=== PATIENT | female | born 1995 | race Caucasian/White ===

== ENCOUNTER 2017-05-06 16:16 | Outpatient (CLI) | payer OTHER ==
--- NOTE | 2017-05-06 17:37 | Non Stress Test Report ---
Non Stress Test Datetime Report Generated by CPN: 05/06/2017 17:36 DEMOGRAPHIC EGA NST: 34.6 INDICATION Indication for Study: Polyhydramnios VITAL SIGNS Temperature - NST: 98.9 NBPSYS NST: 120 NBPDIA NST: 73 MONITORING Monitor Explained: Monitor Explained; Test Explained; Patient Verbalized Understanding Time on Monitor: 05/06/2017 16:28 Time off Monitor: 05/06/2017 17:23 NST Duration: 55 NST INTERVENTIONS NST Interventions: PO Hydration; Reposition Patient Physician Notified NST: Dr. Alex BABY A: [id number] BABY A Movement : Present Contraction Frequency : irritability FHR Baseline : 130 Accelerations : 15X15 Decelerations : None Variability : Moderate 6-25bpm NST Review: Meets Criteria for Reactive NST NST Review and Verified By : Yin Pinto RN NST Results: Reactive NST REPORT Report Trigger: Send Report
== END 2017-05-06 17:40 | disposition home or self-care (01) ==
LOC: LC 16:16
PROVIDERS: ATTEND Obstetrics & Gynecology
PROC: 4A1HXCZ Monitoring of Products of Conception, Cardiac Rate, External Approach (ICD-10-PCS; principal; 2017-05-06)
DX: O40.2XX0 Polyhydramnios, second trimester, not applicable or unspecified (principal); Z3A.34 34 weeks gestation of pregnancy
CPT/HCPCS: 59025

== ENCOUNTER 2017-06-15 08:40 | Inpatient (IN) | payer OTHER ==
[2017-06-15 09:16] LABS: APPEARANCE,URINE SLIGHTLY-CLOUDY; BILIRUBIN,URINE NEGATIVE (NEGATIVE); GLUCOSE, URINE NEGATIVE (NEGATIVE); KETONES,URINE TRACE mg/dL (NEGATIVE); LEUKOCYTE ESTERASE,URINE SMALL (NEGATIVE); NITRITE,URINE NEGATIVE (NEGATIVE); PROTEIN,URINE NEGATIVE (NEGATIVE); URINE SPECIFIC GRAVITY 1.016; UROBILINOGEN,URINE NEGATIVE mg/dL (<2.0)
[2017-06-15] MEDS ORDERED: HYDROXYZINE PAMOATE 50 MG CAPSULE ONE (09:28)
[2017-06-15 09:33] LABS: URINE BARBITURATES SCREEN NEGATIVE; URINE METHADONE SCREEN NEGATIVE; URINE OPIATES LOW NEGATIVE; URINE PHENCYCLIDINE SCREEN NEGATIVE
[2017-06-15] MEDS ORDERED: ACETAMINOPHEN 325 MG TABLET ONE ×2 (09:57→18:41)
[2017-06-15] MEDS ORDERED: PENICILLIN G-K 5 MILLION UNIT VIAL ONE ×3 (10:15→18:14)
[2017-06-15 10:51] LABS: ABSOLUTE LYMPHOCYTES (AUTO) 1.5 10^3/uL (0.5-4.7); ABSOLUTE MONOCYTES (AUTO) 1.1 10^3/uL (0.1-1.4); ABSOLUTE NEUT (AUTO) 16.7 10^3/uL (1.7-8.2); BASOPHILS % (AUTO) 0.2 % (0-2); EOSINOPHILS % (AUTO) 0.1 % (0-6); HEMATOCRIT 29.7 % (36.0-47.0); HEMOGLOBIN 9.6 g/dL (12.0-15.5); HGB HCT DIFFERENCE -0.9; LYMPHOCYTES % (AUTO) 7.6 % (13-45); MEAN CORPUSCULAR HEMOGLOBIN 24.8 pg (27.0-33.4); MEAN CORPUSCULAR HGB CONC 32.5 g/dL (32.0-36.0); MEAN CORPUSCULAR VOLUME 77 fl (80-97); MONOCYTES % (AUTO) 5.7 % (3-13); RED BLOOD COUNT 3.88 10^6/uL (3.72-5.28); RED CELL DISTRIBUTION WIDTH 17.2 % (11.5-14.0); SEGMENTED NEUTROPHILS % (AUTO) 86.4 % (42-78); WHITE BLOOD COUNT 19.3 10^3/uL (4.0-10.5)
[2017-06-15] MEDS ORDERED: PENICILLIN G POTASSIUM 5,000,000 UNIT in DEXTROSE 5%-WATER 100 ML IV ONE (11:06)
[2017-06-15] MEDS ORDERED: RINGERS SOLUTION,LACTATED 1,000 ML IV ONE (11:06)
[2017-06-15] MEDS ORDERED: RINGERS SOLUTION,LACTATED 1,000 ML IV PRN (11:06)
[2017-06-15] MEDS ORDERED: OXYTOCIN/NORMAL SALINE 20 UNIT/1,000 ML RTUINJ IV PRN ×2 (11:06→21:11)
[2017-06-15] MEDS ORDERED: LIDOCAINE 1% INJ-PF (10 MG/ML) 30 ML SDV ONE (11:27)
[2017-06-15] MEDS ORDERED: MISOPROSTOL 0.2 MG TABLET ONE (11:27)
[2017-06-15] MEDS ORDERED: OXYTOCIN/NORMAL SALINE 20 UNIT/1,000 ML RTUINJ ONE ×2 (11:27→21:38)
[2017-06-15] MEDS: PENICILLIN G POTASSIUM 2,500,000 UNIT in DEXTROSE 5%-WATER 50 ML IV SCH ×2 (14:14→18:26)
[2017-06-15] MEDS ORDERED: EPHEDRINE SULFATE INJ 50 MG/1 ML AMPULE ONE (15:36)
[2017-06-15] MEDS ORDERED: FENTANYL CITRATE INJ/PF 100 MCG/2 ML AMPUL ONE (15:36)
[2017-06-15] MEDS ORDERED: PHENYLEPHRINE HCL INJ/PF 10 MG/1 ML SDV ONE (15:37)
[2017-06-15] MEDS ORDERED: FENTANYL/BUPIVACAINE/NS/PF 200 MCG/100 ML RTUINJ EPI ONE (15:37)
[2017-06-15] MEDS ORDERED: BUPIVACAINE HCL 0.25 % INJ/PF (2.5 MG/1 ML) 30 ML VIAL ONE (15:37)
[2017-06-15] MEDS ORDERED: PROMETHAZINE HCL INJ 25 MG/1 ML VIAL IV PRN (21:11)
[2017-06-15] MEDS ORDERED: NA PHOS,M-B/NA PHOS,DI-BA (ADULT) 133 ML ENEMA PR PRN (21:11)
[2017-06-15] MEDS ORDERED: MEASLES,MUMPS&RUBELLA VACC/PF 0.5 ML VIAL SUBCUT PRN (21:11)
[2017-06-15] MEDS ORDERED: PROMETHAZINE HCL 25 MG TABLET PO PRN (21:11)
[2017-06-15] MEDS ORDERED: BENZOCAINE/MENTHOL AEROSOL SPRAY 56 ML TOP PRN (21:11)
[2017-06-15] MEDS ORDERED: MAGNESIUM HYDROXIDE SUSP 30 ML UDCUP PO PRN (21:11)
[2017-06-15] MEDS ORDERED: PROMETHAZINE HCL 25 MG SUPP.RECT PR PRN (21:11)
[2017-06-15] MEDS ORDERED: DIPH/PERTUSS(ACELL)/TETANUS VAC/PF 0.5 ML SYR (>=10YO) IM PRN (21:11)
[2017-06-15] MEDS ORDERED: DIBUCAINE 1% OINTMENT 28 GM TP PRN (21:11)
[2017-06-15] MEDS ORDERED: PSEUDOEPHEDRINE HCL 30 MG TABLET PO PRN (21:11)
[2017-06-15] MEDS ORDERED: ZOLPIDEM TARTRATE 5 MG TABLET PO PRN (21:11)
[2017-06-15] MEDS ORDERED: DIPHENHYDRAMINE HCL 25 MG CAPSULE PO PRN (21:11)
[2017-06-15] MEDS ORDERED: ACETAMINOPHEN WITH CODEINE #3 TABLET PO PRN ×2 (21:11)
[2017-06-15] MEDS ORDERED: ACETAMINOPHEN 650 MG SUPP.RECT PR PRN (21:11)
[2017-06-15] MEDS ORDERED: GLYCERIN/WITCH HAZEL LEAF 1 EACH MED..PAD TP PRN (21:11)
[2017-06-15] MEDS ORDERED: AMPICILLIN SOD/SULBACTAM 3 GM VIAL IV SCH (21:15)
[2017-06-15] MEDS ORDERED: AMPICILLIN SODIUM/SULBACTAM NA 3 GM in NORMAL SALINE 100 ML IV ONE (22:00)
[2017-06-15] MEDS ORDERED: FERROUS SULFATE 325 MG TABLET PO ONE ×2 (23:00→23:41)
[2017-06-15 23:24] LABS: ABSOLUTE LYMPHOCYTES (AUTO) 1.1 10^3/uL (0.5-4.7); ABSOLUTE MONOCYTES (AUTO) 1.1 10^3/uL (0.1-1.4); ABSOLUTE NEUT (AUTO) 17.6 10^3/uL (1.7-8.2); BASOPHILS % (AUTO) 0.2 % (0-2); HEMATOCRIT 22.9 % (36.0-47.0); HGB HCT DIFFERENCE -0.4; LYMPHOCYTES % (AUTO) 5.4 % (13-45); MEAN CORPUSCULAR HEMOGLOBIN 25.2 pg (27.0-33.4); MEAN CORPUSCULAR HGB CONC 32.9 g/dL (32.0-36.0); MEAN CORPUSCULAR VOLUME 77 fl (80-97); MONOCYTES % (AUTO) 5.3 % (3-13); RED BLOOD COUNT 2.99 10^6/uL (3.72-5.28); RED CELL DISTRIBUTION WIDTH 17.7 % (11.5-14.0); SEGMENTED NEUTROPHILS % (AUTO) 89.1 % (42-78); WHITE BLOOD COUNT 19.8 10^3/uL (4.0-10.5)
[2017-06-15 23:29] LABS: HEMOGLOBIN 7.5 g/dL (12.0-15.5)
[2017-06-15] MEDS ORDERED: ACETAMINOPHEN WITH CODEINE #3 TABLET ONE (23:40)
[2017-06-16] MEDS ORDERED: ACETAMINOPHEN 325 MG TABLET ONE ×2 (00:20→04:57)
[2017-06-16] MEDS ORDERED: ACETAMINOPHEN 325 MG TABLET PO ONE (00:31)
[2017-06-16] MEDS ORDERED: NORMAL SALINE 250 ML IV PRN (01:08)
[2017-06-16] MEDS ORDERED: DIPHENHYDRAMINE HCL 25 MG CAPSULE ONE (02:04)
[2017-06-16] MEDS ORDERED: IBUPROFEN 800 MG TABLET ONE (02:14)
[2017-06-16] MEDS: IBUPROFEN 800 MG TABLET PO SCH ×4 (02:16→21:23)
--- NOTE | 2017-06-16 02:54 | Delivery Summary ---
Del Sum A-C Datetime Report Generated by CPN: 06/16/2017 02:53 DELIVERY PERSONNEL DELIVERY PERSONNEL: [id number] Delivery Doctor:: Corrina Johnson MD Labor and Delivery Nurse:: Iman Senior RNcollege scouting coordinator Nurse:: Elvira Prado RN Nursery Nurse:: Erica Doll RN MATERNAL INFORMATION Delivery Anesthesia: Epidural Medications After Delivery: Pitocin Bolus-Please Comment; Pitocin Drip 20 Units/1000ml NSS Estimated Blood Loss (ml): 200 Maternal Complications: Maternal Fever Provider Comments: copious amount of meconium. Nursery present at delivery LABOR SUMMARY EDC: 06/11/2017 00:00 No. Babies in Womb: 1 Attempted: No Labor Anesthesia: Epidural LABOR INFORMATION Reason for Induction: Postterm; Maternal Diabetes; Other Onset of Labor: 06/15/2017 15:03 Complete Dilatation: 06/15/2017 20:26 Oxytocin: Induction Group B Beta Strep: positive Antibiotics # of Doses: 3 Antibiotics Time of Last Dose: 1814 Steroids Given: None Reason Steroids Not Administered: Not Applicable MEMBRANES Membranes Rupture Method: Artificial Rupture of Membranes: 06/15/2017 15:03 Length of Rupture (hr): 5.93 Amniotic Fluid Color: Moderate Meconium Amniotic Fluid Amount: Large Amniotic Fluid Odor: Normal STAGES OF LABOR Stage 1 hr: 5 Stage 1 min: 23 Stage 2 hr: 0 Stage 2 min: 33 Stage 3 hr: 0 Stage 3 min: 5 Total Time in Labor hr: 6 Total Time in Labor min: 1 VAGINAL DELIVERY Episiotomy: None Laceration #1: None Laceration Repair: Not Applicable BABY A INFORMATION Delivery Date/Time: 06/15/2017 20:59 Method of Delivery: Vaginal Born in Route : No : N/A Forceps: N/A Vacuum Extraction: N/A Shoulder Dystocia : No PRESENTATION/POSITION BABY A Presentation: Cephalic Cephalic Presentation: N/A Vertex Position: Right Occipital Anterior Breech Presentation: N/A PLACENTA INFORMATION BABY A Placenta Delivery Time : 06/15/2017 21:04 Placenta Method of Delivery: Spontaneous Placenta Status: Delivered SCORES BABY A Heart Rate 1 min: >100 bpm Resp Effort 1 min: Good Cry Reflex Irritability 1 min: Cough or Sneeze or Pulls Away Muscle Tone 1 min: Active Motion Color 1 min: Blue/Pale SCORE 1 MIN: 8 Heart Rate 5 min: >100 bpm Resp Effort 5 min: Good Cry Reflex Irritability 5 min: Cough or Sneeze or Pulls Away Muscle Tone 5 min: Active Motion Color 5 min: Body [place], Extremities Blue SCORE 5 MIN: 9 INFORMATION BABY A Gestational Age at Delivery: 40.4 Gestational Status: Full Term- 39- 40.6 Weeks Infant Outcome : Liveborn Infant Condition : Stable Sex: Male IDENTIFICATION BABY A Verification Date/Time: 06/15/2017 21:09 ID Band Number: [id number] Mother's Name Verified: Yes Infant RN Verifying Infant: CRandi Herring, RN Additional Verifying Personnel: Kendell Rousseau WEIGHT/LENGTH BABY A Infant Birthweight (gm): 3795 Weight (lb): 8 Weight (oz): 6 Length (in): 21.00 Infant Length (cm): 53.34 CORD INFORMATION BABY A No. Cord Vessels: 3 Nuchal Cord : Around Neck x1, Loose Cord Blood Taken: Yes-For Storage (Mom's Blood type +) Infant Suction: Mouth; Nose ASSESSMENT BABY A Complications: Meconium; Other Complications- Other: Intermittent Tachycardia Physical Findings at Delivery: Within Normal Limits Infant Respirations: Appears Normal Skin to Skin: Yes Skin to Skin Time (min): 45 Provider Network Mgr/ALS Called : No Infant Care By: Gloria Doll RN Transferred To: Remains with Mother SIGNATURES Signature: with User ID: [email or web address]
[2017-06-16] MEDS ORDERED: AMPICILLIN SODIUM/SULBACTAM NA 3 GM in NORMAL SALINE 100 ML IV SCH (03:00)
--- NOTE | 2017-06-16 05:15 | Admission Physical ---
Datetime Report Generated by CPN: 06/16/2017 05:15 CURRENT ADMISSION Chief Complaint: Uterine Contractions; Illness Chief Complaint Other: initially scheduled for induction on Tuesday. Today had episode of vomiting x 2 with fever of 102. tachycardia noted as well as maternal tachycardia. WBC: 19 Indication for Induction: Maternal Diabetes; Polyhydramnios; Other Indication for Induction: Term, Intrauterine ; No Active Labor; Induction of Labor; Medical Complication Admit Plan: Admit to Unit; Initiate Labor Induction Protocol ALLERGIES Medication Allergies: No Medication Allergies: No Known Allergies (06/15/2017) Latex: No Latex Allergies Food Allergies: n/a Environmental Allergies: n/a OBSTETRICAL HISTORY EDC: 06/11/2017 00:00 : 2 Para: 1 Term: 1 : 0 SAB: 0 IAB: 0 Ectopic: 0 Livin Cesareans: 0 VBACs: 0 Multiple Births: 0 Gestational Diabetes: Yes Rh Sensitization: No Incompetent Cervix: No DENISE: No Infertility: No ART Treatment: No Uterine Anomaly: No IUGR: No Hx Previous C/S: No Macrosomia: No Hx Loss/Stillborn: No PIH: No Hx : No Placenta Previa/Abruption: No Depression/PP Depression: Yes PTL/PROM: No Post Hemorrhage: No Current Procedures: Ultrasound; NST Obstetrical History Comments: G1: 11/2014 G2: current, GDM diet, poly (TORO 28) SEE RECORDS Alcohol: No Marijuana : No Cocaine: No Other Illicit Drugs: No Cigarettes: Never Smoker. [id number] MEDICAL HISTORY Diabetes Type: Gestational Diabetes Blood Transfusion: Yes Pulmonary Disease (Asthma, TB): No Breast Disease: No Hypertension: No Quality Control Director Surgery: No Heart Disease: No Hosp/Surgery: Yes Autoimmune Disorder: No Anesthetic Complications: No Kidney Disease: Yes Abnormal Pap Smear: No Neuro/Epilepsy: No Psychiatric Disorders: No Other Medical Diseases: No Hepatitis/Liver Disease: No Significant Family History: No Varicosities/Phlebitis: No Trauma/Violence : No Thyroid Dysfunction: No Medical History Comments: Gallbladder removed in 2014, blood transfusion at age 3 related to pneumonia diagnosis) INFECTIOUS HISTORY Gonorrhea: No Genital Herpes: No Chlamydia: No Tuberculosis: No Syphilis: No Hepatitis: No HIV/AIDS Exposure: No Rash or Viral Illness: No HPV: No PHYSICAL EXAM General: Normal HEENT: Normal Neurologic: Normal Thyroid: Normal Heart: Normal Lungs: Normal Breast: Normal Back: Normal Abdomen: Normal Genitourinary Exam: Normal Extremities: Normal DTRs: Normal Pelvic Type: Adequate Vital Signs: Reviewed VAGINAL EXAM Dilatation: 3 Effacement: 50 Station: -2 MEMBRANES Pooling: Negative Membranes: Intact FETUS A EGA: 40.4 Monitoring: External US FHR- Baseline: 150 Variability: Moderate 6-25bpm Accelerations: 15X15 Decelerations: None FHR Category: Category I Estimated Weight (gm): 3500 Presentation: Vertex Admit Comment: PCN and antipyretics. will proceed with delivery in light of induction scheduled soon, at therm and now with possible infection. Anticipate vaginal delivery PLANS FOR LABOR AND DELIVERY Labor and Delivery: None Pain Management: Natural Feeding Preference: Breast Benefit of Breast Feed Discussed: Yes Circumcision: No INFORMED CONSENT Signature: with User ID: [email or web address]
[2017-06-16] MEDS ORDERED: INFLUENZA ADLT QUAD (36MOS+) 2017-18 VAC 0.5 ML SYR IM PRN (06:01)
[2017-06-16 07:20] LABS: HEMATOCRIT 23.9 % (36.0-47.0); HGB HCT DIFFERENCE 0.1; MEAN CORPUSCULAR HEMOGLOBIN 25.3 pg (27.0-33.4); MEAN CORPUSCULAR HGB CONC 33.5 g/dL (32.0-36.0); MEAN CORPUSCULAR VOLUME 76 fl (80-97); RED BLOOD COUNT 3.16 10^6/uL (3.72-5.28); WHITE BLOOD COUNT 14.6 10^3/uL (4.0-10.5)
[2017-06-16] MEDS: AMPICILLIN SODIUM/SULBACTAM NA 3 GM in NORMAL SALINE 100 ML IV SCH ×2 (07:22→13:12)
[2017-06-16] MEDS: FAMOTIDINE 20 MG TABLET PO SCH ×3 (07:22→21:24)
--- NOTE | 2017-06-16 09:34 | PDOC PROGRESS REPORT ---
Subjective-OB Subjective: Post Delivery Day: 21 year old. Denies any needs at this time Doing well, resting in bed, feeling better after a unit of blood, voiding, scant lochia Physical Exam (OB) Vital Signs: Temp Pulse Resp BP Pulse Ox 98.1 F 98 16 107/70 99 06/16/17 08:14 06/16/17 08:14 06/16/17 08:14 06/16/17 08:14 06/16/17 08:14 Intake & Output 06/15/17 06/16/17 06/17/17 06:59 06:59 06:59 Intake Total 242 Balance 242 Weight 66.8 kg - PIH/Pre-Eclampsia Clonus: Negative Headache: Absent Epigastric Pain: No Visual Changes: No - Lochia Lochia Amount: Scant < 10 ml Lochia Color: Rubra/Red - Abdomen Description: Soft, Round Hernia Present: No Fundal Description: Firm, Midline Fundal Height: u/u - u/2 Objective-Diagnostic Laboratory: 06/16/17 07:07 06/15/17 06/15/17 06/15/17 10:36 10:36 23:08 WBC 19.3 H 19.8 H RBC 3.88 2.99 L Hgb 9.6 L 7.5 L D Hct 29.7 L 22.9 L MCV 77 L 77 L MCH 24.8 L 25.2 L MCHC 32.5 32.9 RDW 17.2 H 17.7 H Plt Count 259 243 Seg Neutrophils % 86.4 H 89.1 H Lymphocytes % 7.6 L 5.4 L Monocytes % 5.7 5.3 Eosinophils % 0.1 0.0 Basophils % 0.2 0.2 Absolute Neutrophils 16.7 H 17.6 H Absolute Lymphocytes 1.5 1.1 Absolute Monocytes 1.1 1.1 Absolute Eosinophils 0.0 0.0 Absolute Basophils 0.0 0.0 Blood Type A POSITIVE Antibody Screen NEGATIVE 06/16/17 07:07 WBC 14.6 H RBC 3.16 L Hgb 8.0 L Hct 23.9 L MCV 76 L MCH 25.3 L MCHC 33.5 RDW 17.0 H Plt Count 222 Seg Neutrophils % Lymphocytes % Monocytes % Eosinophils % Basophils % Absolute Neutrophils Absolute Lymphocytes Absolute Monocytes Absolute Eosinophils Absolute Basophils Blood Type Antibody Screen Assessment and Plan(PN) - Assessment and Plan (1) Anemia Qualifiers: Anemia type: iron deficiency Is this a current diagnosis for this admission?: Yes (2) Normal vaginal delivery Is this a current diagnosis for this admission?: Yes - Time Spent with Patient Time with patient: Less than 15 minutes Medications reviewed and adjusted accordingly: Yes - Disposition Anticipated Discharge: Home Within: within 24 hours
[2017-06-16] MEDS ORDERED: FERROUS SULFATE 325 MG TABLET PO SCH (10:00)
[2017-06-16] MEDS: PRENATAL VITAMIN W DHA CAPSULE PO SCH (10:15)
[2017-06-16] MEDS: DOCUSATE SODIUM 100 MG CAPSULE PO SCH ×2 (10:16→17:25)
[2017-06-16] MEDS: SENNOSIDES/DOCUSATE 8.6-50 MG 1 EACH TABLET PO SCH (10:17)
[2017-06-16] MEDS: FERROUS SULFATE 325 MG TABLET PO SCH ×3 (10:17→17:26)
[2017-06-17] MEDS: IBUPROFEN 800 MG TABLET PO SCH ×2 (05:51→13:19)
[2017-06-17 08:26] VITALS: BP 103/57
--- NOTE | 2017-06-17 08:48 | PDOC PROGRESS REPORT ---
Subjective-OB Subjective: Post Delivery Day: 21 year old. Denies any needs at this time Doing well, ready to go home, voiding, scant lochia, Physical Exam (OB) Vital Signs: Temp Pulse Resp BP Pulse Ox 97.9 F 100 20 103/57 L 100 06/17/17 08:19 06/17/17 08:19 06/17/17 08:19 06/17/17 08:19 06/17/17 08:19 Intake & Output 06/16/17 06/17/17 06/18/17 06:59 06:59 06:59 Intake Total 242 240 Balance 242 240 Weight 66.8 kg - PIH/Pre-Eclampsia Clonus: Negative Headache: Absent Epigastric Pain: No Visual Changes: No - Lochia Lochia Amount: Scant < 10 ml Lochia Color: Rubra/Red - Abdomen Description: Soft Hernia Present: No Fundal Description: Firm, Midline Fundal Height: u/u - u/2 Objective-Diagnostic Laboratory: 06/16/17 07:07 Assessment and Plan(PN) - Assessment and Plan (1) Anemia Qualifiers: Anemia type: iron deficiency Is this a current diagnosis for this admission?: Yes (2) Normal vaginal delivery Is this a current diagnosis for this admission?: Yes - Time Spent with Patient Time with patient: Less than 15 minutes Medications reviewed and adjusted accordingly: Yes - Disposition Anticipated Discharge: Home Within: Other - home today
--- NOTE | 2017-06-17 08:52 | PDOC DISCHARGE SUMMARY ---
Final Diagnosis Discharge Date: 06/17/17 - Final Diagnosis (1) Anemia Is this a current diagnosis for this admission?: Yes (2) Normal vaginal delivery Is this a current diagnosis for this admission?: Yes Discharge Data - Discharge Medication Home Medications: Prenat 115/Iron Fum/Folic/Dss [ 19 Tablet] 1 tab PO DAILY 12/12/14 Ferrous Sulfate [Feosol 325 mg Tablet] 325 mg PO BID #90 tablet 12/13/14 Gestational Age: 40.4 Reason(s) for Admission: Onset of Labor, Gestional Diabetes, Group B Strep Positive Procedures: NST, Ultrasound Intrapartum Procedure(s): Spontaneous Vaginal Delivery Intrapartum Procedure Note: + Mec, tachycardia - [place] Data Baby 1 Male at 1 minute: 8 at 5 minutes: 9 Weight: 3.799 kg Home with Mother: Yes Complications: No - Diagnosis Test Laboratory: Temp Pulse Resp BP Pulse Ox 97.9 F 100 20 103/57 L 100 06/17/17 08:19 06/17/17 08:19 06/17/17 08:19 06/17/17 08:19 06/17/17 08:19 06/15/17 06/15/17 06/15/17 09:01 10:36 23:08 RBC 3.88 2.99 L Hgb 9.6 L 7.5 L D Hct 29.7 L 22.9 L Urine Opiates Screen NEGATIVE 06/16/17 07:07 RBC 3.16 L Hgb 8.0 L Hct 23.9 L Urine Opiates Screen - Discharge information/Instructions Discharge Activity: Activity As Tolerated, No Lifting Over 10 Pounds, No Lifting /Push/Pulling, Pelvic Rest Discharge Diet: As Tolerated, Regular Disposition: HOME, SELF-CARE Follow up with: [facility] in: 4, Weeks
[2017-06-17] MEDS: DOCUSATE SODIUM 100 MG CAPSULE PO SCH (09:22)
[2017-06-17] MEDS: FAMOTIDINE 20 MG TABLET PO SCH (09:22)
[2017-06-17] MEDS: SENNOSIDES/DOCUSATE 8.6-50 MG 1 EACH TABLET PO SCH (09:22)
[2017-06-17] MEDS: FERROUS SULFATE 325 MG TABLET PO SCH ×2 (09:23→13:19)
[2017-06-17] MEDS: PRENATAL VITAMIN W DHA CAPSULE PO SCH (10:08)
== END 2017-06-17 17:00 | disposition home or self-care (01) | DRG 774 ==
LOC: LC 08:40 → LR 10:23 → 2S 06-16 05:13
PROVIDERS: ADMIT Obstetrics & Gynecology; ATTEND Obstetrics & Gynecology
PROC: 10E0XZZ Delivery of Products of Conception, External Approach (ICD-10-PCS; principal; 2017-06-15)
PROC: 30233N1 Transfusion of Nonautologous Red Blood Cells into Peripheral Vein, Percutaneous Approach (ICD-10-PCS; 2017-06-16)
DX: O40.3XX0 Polyhydramnios, third trimester, not applicable or unspecified (principal); O99.42 Diseases of the circulatory system complicating childbirth; O24.420 Gestational diabetes mellitus in childbirth, diet controlled; O77.0 Labor and delivery complicated by meconium in amniotic fluid; O48.0 Post-term pregnancy; Z3A.40 40 weeks gestation of pregnancy; O99.824 Streptococcus B carrier state complicating childbirth; O69.81X0 Labor and delivery complicated by cord around neck, without compression, not applicable or unspecified; O76 Abnormality in fetal heart rate and rhythm complicating labor and delivery; R00.0 Tachycardia, unspecified; Z37.0 Single live birth; O99.03 Anemia complicating the puerperium; D50.9 Iron deficiency anemia, unspecified
CPT/HCPCS: 36415; 36430; 80307; 81005; 82962; 85025; 85027; 86592; 86850; 86900; 86901; 86920; 87804; 94760; J0295; J2370; J2540; J2590; J3010; J3490; P9016